=== PATIENT | male | born 1985 | race Caucasian/White ===

== ENCOUNTER → 2021-03-08 | Outpatient (CLI) | payer BC | END | disposition home or self-care (01) | LOC: ORTHO 10:02 | PROVIDERS: ATTEND Orthopaedic Surgery | DX: S42.024D Nondisplaced fracture of shaft of right clavicle, subsequent encounter for fracture with routine healing (principal); X58.XXXD Exposure to other specified factors, subsequent encounter ==

== ENCOUNTER → 2021-05-10 | Outpatient (CLI) | payer BC | END | disposition home or self-care (01) | LOC: ORTHO 01:49 | PROVIDERS: ATTEND Orthopaedic Surgery | DX: S42.024D Nondisplaced fracture of shaft of right clavicle, subsequent encounter for fracture with routine healing (principal); X58.XXXD Exposure to other specified factors, subsequent encounter ==

== ENCOUNTER → 2021-08-14 | Outpatient (CLI) | payer BC | END | disposition home or self-care (01) | LOC: ORTHO 14:15 | PROVIDERS: ATTEND Orthopaedic Surgery | DX: M95.8 Other specified acquired deformities of musculoskeletal system (principal) ==